=== PATIENT | female | born 1965 | race American Indian/Alaskan Native ===

== ENCOUNTER 2017-10-17 12:17 | Emergency (ER) | payer OTHER ==
[2017-10-17 12:24] VITALS: BP 135/82; PULSE 93; RESP 18; TEMP 98.2; O2SAT 100
--- NOTE | 2017-10-17 13:01 | RAD ---
HISTORY: COUGH COMPARISON: No prior. TECHNIQUE: Chest PA and lateral FINDINGS: LUNGS: No active pulmonary disease. PLEURA: No significant pleural effusion identified. No pneumothorax apparent. CARDIOVASCULAR: Normal. OSSEOUS STRUCTURES: No significant abnormalities. VISUALIZED UPPER ABDOMEN: Normal. OTHER FINDINGS: None. IMPRESSION: No active disease. No evidence of pneumonia
--- NOTE | 2017-10-17 13:08 | C.PDOC ---
History Of Present Illness 52 year old female presents to the ED for evaluation of a nonproductive cough x 2 weeks. Symptoms are worse at night. Patient states she is recovering from URI and Lasyngitis. Patient has prior history of asthma. Denies wheezing, fever, dyspnea on exertion, chest pain, shortness of breath. Patient is currently asymptomatic. [employer]ER COUGH X 2 WEEKS WORSE @ NIGHT. PS RECOVERING FROM URI AND LARYGNITIS. PRIOR HO ASTHMA. NO WHEEZE, FEVER, [place], CP SOB. CURRENTLY ASYMPT EXAM NEG Time Seen by Provider: 10/17/17 12:40 Chief Complaint (Nursing): Cough, Cold, Congestion History Per: Patient History/Exam Limitations: no limitations Onset/Duration Of Symptoms: Other (2 weeks ) Current Symptoms Are (Timing): Still Present Sick Contacts (Context): None Associated Symptoms: Cough. denies: Sputum Ear Symptoms: Bilateral: None Additional History Per: Patient Past Medical History Reviewed: Historical Data, Nursing Documentation, Vital Signs Vital Signs: Last Vital Signs Temp 98.2 F 10/17/17 12:22 Pulse 93 H 10/17/17 12:22 Resp 18 10/17/17 12:22 BP 135/82 10/17/17 12:22 Pulse Ox 100 10/17/17 13:08 - Medical History PMH: HTN, Hypercholesterolemia Denies: Chronic Kidney Disease Surgical History: No Surg Hx Family History: States: Unknown Family Hx - Social History Hx Alcohol Use: Yes Hx Substance Use: Yes - Immunization History Hx Tetanus Toxoid Vaccination: No Hx Influenza Vaccination: Yes Hx Pneumococcal Vaccination: Yes Review Of Systems Respiratory: Positive for: Cough. Negative for: Sputum Physical Exam - Physical Exam Appears: Non-toxic, No Acute Distress Skin: Normal Color, Warm, Dry Head: Atraumatic, Normacephalic Eye(s): bilateral: Normal Inspection Oral Mucosa: Moist Throat: Normal, No Erythema, No Exudate Neck: Supple Chest: Symmetrical, No Deformity, No Tenderness Cardiovascular: Rhythm Regular, No Murmur Respiratory: Normal Breath Sounds, No Rales, No Rhonchi, No Wheezing Extremity: Normal ROM, Capillary Refill (less than 2 seconds ) Neurological/Psych: Oriented x3, Normal Speech, Normal Cognition Gait: Steady ED Course And Treatment O2 Sat by Pulse Oximetry: 100 (on RA) Pulse Ox Interpretation: Normal - Radiology CXR Interpretation: Yes: No Acute Disease, Infiltrates Progress Note: CXR ordered and reviewed. Disposition Counseled Patient/Family Regarding: Studies Performed, Diagnosis, Need For Followup, Rx Given - Disposition Referrals: [facility] [Outside] [facility] [Outside] Disposition: HOME/ ROUTINE Disposition Time: 13:07 Condition: GOOD Prescriptions: Albuterol HFA [Ventolin HFA 90 mcg/actuation (8 g)] 1 puff IH Q4 #1 inhaler Benzonatate [Tessalon Perles] 200 mg PO TID PRN #15 sgl PRN Reason: Cough predniSONE [Prednisone] 60 mg PO DAILY #15 tab Instructions: Upper Respiratory Infection (ED) Forms: Mouth Party (Turkmen) - Clinical Impression Clinical Impression: Upper respiratory infection - Scribe Statement The provider has reviewed the documentation as recorded by the Scribe (Mita Guevara) Provider Attestation: All medical record entries made by the Scribe were at my direction and personally dictated by me. I have reviewed the chart and agree that the record accurately reflects my personal performance of the history, physical exam, medical decision making, and the department course for this patient. I have also personally directed, reviewed, and agree with the discharge instructions and disposition.
== END 2017-10-17 13:31 | disposition home or self-care (01) ==
LOC: C.ER 12:17
DX: J06.9 Acute upper respiratory infection, unspecified (principal)